=== PATIENT | male | born 1980 | race Caucasian/White ===

== ENCOUNTER 2019-04-28 23:33 | Emergency (ER) | payer BC ==
[2019-04-28] MEDS ORDERED: Ketorolac 60 MG/2 ML SDV IM ONE (23:49)
[2019-04-28] MEDS ORDERED: Acetaminophen/HYDROcodone 325-10 MG Tab PO ONE (23:49)
--- NOTE | 2019-04-28 23:53 | EDM.PDOC ---
ED HPI GENERAL MEDICAL PROBLEM - General Chief Complaint: Back Pain or Injury Stated Complaint: PT SPOKE TO NURSE Time Seen by Provider: 04/28/19 23:51 - History of Present Illness INITIAL COMMENTS - FREE TEXT/NARRATIVE: HISTORY AND PHYSICAL: History of present illness: Patient's 39-year-old white male presents with concern of low back pain that occurred after doing some furniture moving recently he denies numbness weakness in concert tension bowel or bladder he's had less significant episodes in the past was never sought medical care. Review of systems: As per history of present illness and below otherwise all systems reviewed and negative. Past medical history: As per history of present illness and as reviewed below otherwise noncontributory. Surgical history: As per history of present illness and as reviewed below otherwise noncontributory. Social history: No reported history of drug or alcohol abuse. Family history: As per history of present illness and as reviewed below otherwise noncontributory. Physical exam: HEENT: Atraumatic, normocephalic, pupils reactive, negative for conjunctival pallor or scleral icterus, mucous membranes moist, throat clear, neck supple, nontender, trachea midline. Lungs: Clear to auscultation, breath sounds equal bilaterally, chest nontender. Heart: S1S2, regular, negative for clicks, rubs, or JVD. Abdomen: Soft, nondistended, nontender. Negative for masses or hepatosplenomegaly. Negative for costovertebral tenderness. Pelvis: Stable nontender. Genitourinary: Deferred. Rectal: Deferred. Extremities: Atraumatic, negative for cords or calf pain. Neurovascular unremarkable. Neuro: Awake, alert, oriented. Cranial nerves II through XII unremarkable. Cerebellum unremarkable. Motor and sensory unremarkable throughout. Exam nonfocal. Back: Patient has some mild paravertebral tenderness at the level of the lower thoracic upper lumbar spine no vertebral body or point tenderness Diagnostics: X-ray lumbosacral spine Therapeutics: Toradol 60 mg IM hydrocodone 10 mg by mouth Impression: #1 low back pain Definitive disposition and diagnosis as appropriate pending reevaluation and review of above. 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 [No Known Home Meds] 04/28/19 [History] ED ROS GENERAL - Review of Systems Review Of Systems: ROS reveals no pertinent complaints other than HPI. ED EXAM, GENERAL - Physical Exam Exam: See Below (See dictation) Course - Vital Signs Last Recorded V/S: Last Vital Signs Temp 35.7 C 04/28/19 23:40 Pulse 73 04/28/19 23:40 Resp 18 04/28/19 23:40 BP 140/61 04/28/19 23:40 Pulse Ox 94 L 04/28/19 23:40 - Orders/Labs/Meds Orders: Active Orders 24 hr Category Date Time Status Lumbar Spine 2 or 3V [CR] Stat Exams 04/28/19 23:49 Ordered Meds: Medications Discontinued Medications Generic Name Dose Route Start Last Admin Trade Name Freq PRN Reason Stop Dose Admin Hydrocodone Bitart/Acetaminophen 1 tab 04/28/19 23:49 [place] 325-10 Mg PO 04/28/19 23:50 ONETIME ONE Ketorolac Tromethamine 60 mg 04/28/19 23:49 Toradol IM 04/28/19 23:50 ONETIME ONE Departure - Departure Time of Disposition: 23:52 Disposition: Home, Self-Care 01 Condition: Good Clinical Impression: Low back pain - Discharge Information Referrals: PCP,None [Primary Care Provider] - Additional Instructions: The following information is given to patients seen in the emergency department who are being discharged to home. This information is to outline your options for follow-up care. We provide all patients seen in our emergency department with a follow-up referral. The need for follow-up, as well as the timing and circumstances, are variable depending upon the specifics of your emergency department visit. If you don't have a primary care physician on staff, we will provide you with a referral. We always advise you to contact your personal physician following an emergency department visit to inform them of the circumstance of the visit and for follow-up with them and/or the need for any referrals to a consulting specialist. The emergency department will also refer you to a specialist when appropriate. This referral assures that you have the opportunity for followup care with a specialist. All of these measure are taken in an effort to provide you with optimal care, which includes your followup. Under all circumstances we always encourage you to contact your private physician who remains a resource for coordinating your care. When calling for followup care, please make the office aware that this follow-up is from your recent emergency room visit. If for any reason you are refused follow-up, please contact the [facility] emergency department at and asked to speak to the emergency department charge nurse. [facility]RIST[facility] [place] [id number] Diclofenac Flexeril Medrol as prescribed follow-up primary medical doctor as needed as discussed return as needed as discussed - My Orders Last 24 Hours: My Active Orders 04/28/19 23:49 Lumbar Spine 2 or 3V [CR] Stat - Assessment/Plan Last 24 Hours: My Active Orders 04/28/19 23:49 Lumbar Spine 2 or 3V [CR] Stat
--- NOTE | 2019-04-29 00:50 | CR ---
INDICATION: pain following lifting injury. no prior. 3 images LUMBAR SPINE FINDINGS: No acute fractures are identified. Disc spaces appear preserved. Osseous alignment is within normal limits and no subluxation is seen. Paravertebral soft tissues are unremarkable. IMPRESSION: No fracture, subluxation, or other acute finding identified. BERNADETTE MIRZA MD [facility] Dictated by: Alexsander Mirza MD @ 04/29/2019 00:49:28 (Electronically Signed)
== END 2019-04-29 01:10 | disposition home or self-care (01) ==
LOC: MW.ED 23:33
DX: M54.5 Low back pain (principal)
CPT/HCPCS: 72100; 96372; 99283; A9270; J1885